=== PATIENT | female | born 1950 | race Caucasian/White ===

== ENCOUNTER 2021-09-12 11:26 | Observation (INO) ==
[2021-09-12] MEDS ORDERED: ASPIRIN 325 MG TABLET PO STA (11:58)
[2021-09-12] MEDS ORDERED: MORPHINE 2 MG/1 ML SYRINGE IV STA (11:58)
[2021-09-12 12:00] LABS: Basophils # 0.1 10*3/uL (0.0-0.2); Eosinophils # 0.3 10*3/uL (0.0-0.87); Eosinophils % 3.1 % (0.00-10.9); Hemoglobin 14.3 GM/DL (12.0-16.0); Immature Granulocytes % 0.2 %; Immature Granulocytes Absolute 0.02 #; Lymphocytes # 1.3 10*3/uL (1.4-4.0); Lymphocytes % 13.8 % (21.3-54.2); Mean Corpuscular HGB Conc 32.5 GM/DL (32-36); Mean Corpuscular Volume 84.5 FL (87-102); Mean Platelet Volume 9.8 FL (9.6-12.0); Monocytes % 5.9 % (1.7-12.7); Platelet Count 285 T/CUMM (130-400); Red Blood Count 5.21 MC/CUMM (3.8-5.5); Red Cell Distribution Width 16.6 % (9.3-17.3); White Blood Count 9.7 T/CUMM (4-12)
[2021-09-12 12:18] LABS: Albumin 3.6 G/DL (3.4-5.0); Bilirubin,Total 0.6 MG/DL (0.20-1.00); Calcium 9.1 MG/DL (8.5-10.1); Osmolality,Calculated 281.5 MOS/KG (273-304); Potassium 3.9 MMOL/L (3.5-5.1); Total Protein 6.6 G/DL (6.4-8.2)
[2021-09-12 12:23] LABS: Anisocytosis Slight; Hypochromasia Slight
[2021-09-12] MEDS ORDERED: AZITHROMYCIN INJ 500 MG in SODIUM CHLORIDE 0.9% 250 ML IV STA (14:26)
[2021-09-12] MEDS ORDERED: ALUM/MAG/SIMETH/LIDO VISC 1:1 30 ML BOTTLE PO STA (14:44)
[2021-09-12] MEDS ORDERED: MAGNESIUM SULF RIDER 2 GM/50 ML PREMIX IV ONE (14:45)
[2021-09-12] MEDS ORDERED: ACETAMINOPHEN 325 MG TABLET PO PRN (14:51)
[2021-09-12] MEDS ORDERED: ONDANSETRON 4 MG/2 ML VIAL IV PRN (14:51)
[2021-09-12] MEDS ORDERED: DEXTROSE 50% 25 GM/50 ML VIAL IV PRN (14:51)
[2021-09-12] MEDS ORDERED: MORPHINE 2 MG/1 ML SYRINGE IV PRN (14:51)
[2021-09-12] MEDS ORDERED: GLUCAGON 1 MG VIAL IM PRN (14:51)
[2021-09-12] MEDS ORDERED: hydrALAZINE 20 MG/1 ML VIAL IV PRN (14:51)
[2021-09-12] MEDS ORDERED: PANTOPRAZOLE 40 MG VIAL IV ONE (14:54)
[2021-09-12] MEDS ORDERED: ATORVASTATIN 20 MG TABLET PO SCH (21:00)
[2021-09-12] MEDS ORDERED: ENOXAPARIN 40 MG/0.4 ML SYRINGE SUBCUT SCH (21:00)
[2021-09-12] MEDS ORDERED: GABAPENTIN 400 MG CAPSULE PO SCH (21:00)
[2021-09-12] MEDS ORDERED: TEMAZEPAM 15 MG CAPSULE PO SCH (21:00)
[2021-09-12] MEDS: ASCORBIC ACID 500 MG TABLET PO SCH (21:06)
[2021-09-12] MEDS: PANTOPRAZOLE 40 MG TABLET PO SCH (21:07)
[2021-09-12] MEDS: buPROPion SR 100 MG TABLET PO SCH (21:07)
[2021-09-12] MEDS: CALCIUM (CARBONATE)/VITAMIN D 600 MG-400 UNIT TABLET PO SCH (21:07)
[2021-09-13 05:14] LABS: Basophils # 0.1 10*3/uL (0.0-0.2); Basophils % 1.2 % (0.0-0.8); Eosinophils # 0.9 10*3/uL (0.0-0.87); Eosinophils % 9.7 % (0.00-10.9); Hematocrit 41.3 VOL% (35.7-47.0); Hemoglobin 13.4 GM/DL (12.0-16.0); Immature Granulocytes % 0.3 %; Immature Granulocytes Absolute 0.03 #; Lymphocytes # 2.7 10*3/uL (1.4-4.0); Lymphocytes % 29.5 % (21.3-54.2); Mean Corpuscular HGB Conc 32.4 GM/DL (32-36); Mean Corpuscular Volume 87.5 FL (87-102); Mean Platelet Volume 9.9 FL (9.6-12.0); Monocytes % 10.1 % (1.7-12.7); Neutrophils % 49.2 % (38.7-73.9); Platelet Count 235 T/CUMM (130-400); Red Blood Count 4.72 MC/CUMM (3.8-5.5); Red Cell Distribution Width 17.1 % (9.3-17.3); White Blood Count 9.1 T/CUMM (4-12)
[2021-09-13 05:38] LABS: Calcium 8.8 MG/DL (8.5-10.1); Risk Ratio 2.1
[2021-09-13 05:52] LABS: Osmolality,Calculated 284.1 MOS/KG (273-304); Potassium 3.7 MMOL/L (3.5-5.1)
[2021-09-13] MEDS: ASCORBIC ACID 500 MG TABLET PO SCH (08:26)
[2021-09-13] MEDS: PANTOPRAZOLE 40 MG TABLET PO SCH (08:26)
[2021-09-13] MEDS: buPROPion SR 100 MG TABLET PO SCH (08:29)
[2021-09-13] MEDS: ALUM/MAG/SIMETH/LIDO VISC 1:1 30 ML BOTTLE PO PRN ×2 (08:31→15:30)
[2021-09-13] MEDS: CALCIUM (CARBONATE)/VITAMIN D 600 MG-400 UNIT TABLET PO SCH (08:34)
[2021-09-13] MEDS ORDERED: GABAPENTIN 400 MG CAPSULE PO SCH (09:00)
[2021-09-13] MEDS ORDERED: PANTOPRAZOLE 40 MG TABLET PO SCH (09:00)
[2021-09-13] MEDS ORDERED: VENLAFAXINE XR 75 MG CAPSULE PO SCH (09:00)
[2021-09-13] MEDS ORDERED: VERAPAMIL SR 120 MG TABLET PO SCH (09:00)
[2021-09-13] MEDS ORDERED: ASPIRIN EC 81 MG TABLET PO SCH (09:00)
[2021-09-13] MEDS ORDERED: MULTIVITAMIN (CENTRUM) TABLET PO SCH (09:00)
[2021-09-13] MEDS ORDERED: ALUM/MAG/SIMETH/LIDO VISC 1:1 30 ML BOTTLE PO ONE (12:05)
[2021-09-13 15:50] VITALS: BP 144/87
== END 2021-09-13 16:05 | disposition home or self-care (01) ==
LOC: EDBD → EDUNIT# → N.EDINP 11:26 → N.ED 11:26 → N.TELEN 20:46
PROVIDERS: ADMIT Internal Medicine; ATTEND Internal Medicine

== ENCOUNTER 2022-06-06 13:26 | Inpatient (IN) ==
[2022-06-06] MEDS ORDERED: methylPREDNISolone SOD SUC 125 MG/2 ML VIAL IV STA (13:55)
[2022-06-06] MEDS ORDERED: ALBUTEROL NEB SOLN 5 MG/ML 20 ML/BOTTLE CONT NEB STA ×2 (13:55→15:40)
[2022-06-06 14:38] LABS: Basophils # 0.1 10*3/uL (0.0-0.2); Basophils % 0.5 % (0.0-0.8); Eosinophils # 1.8 10*3/uL (0.0-0.87); Eosinophils % 13.6 % (0.00-10.9); Hemoglobin 12.8 GM/DL (12.0-16.0); Immature Granulocytes % 0.8 %; Immature Granulocytes Absolute 0.11 #; Lymphocytes # 1.6 10*3/uL (1.4-4.0); Lymphocytes % 11.5 % (21.3-54.2); Mean Corpuscular Volume 83.2 FL (87-102); Mean Platelet Volume 8.8 FL (9.6-12.0); Monocytes # 1.1 10*3/uL (0.11-0.8); Monocytes % 7.8 % (1.7-12.7); Neutrophils % 65.8 % (38.7-73.9); Platelet Count 290 T/CUMM (130-400); Red Blood Count 4.81 MC/CUMM (3.8-5.5); Red Cell Distribution Width 15.5 % (9.3-17.3); White Blood Count 13.5 T/CUMM (4-12)
[2022-06-06 14:59] LABS: Albumin 2.9 G/DL (3.4-5.0); Bilirubin,Total 0.4 MG/DL (0.20-1.00); Osmolality,Calculated 272.1 MOS/KG (273-304); Potassium 4.3 MMOL/L (3.5-5.1); Total Protein 6.4 G/DL (6.4-8.2)
[2022-06-06 15:28] LABS: Eosinophils 13 % (0-10); Hypochromia Slight; Lymphocytes 14 % (20-55); Total Cells Counted 100
[2022-06-06 15:29] LABS: Anisocytosis Slight; Platelet Estimate Adequate; Polychromasia Slight
[2022-06-06 16:04] LABS: Barbiturates Screen,Urine Negative (Negative); Benzodiazepines Screen,Urine Negative (Negative); Cannabinoid Screen,Urine Negative (Negative); Opiate Screen,Urine Positive (Negative); Phencyclidine Screen,Urine Negative (Negative)
[2022-06-06 16:07] LABS: Hyaline Casts,Urine 11 /LPF (0-3); Mucus,Urine Occasional /LPF (Occasional); RBC,Urine 1 /HPF (0-4); Squamous Epithelial Cell,Urine Occasional /HPF (0-10); Urine Appearance Clear (Clear); Urine Color Yellow (Yellow)
[2022-06-06 16:08] LABS: Bilirubin,Urine Negative (Negative); Blood, Urine Negative (Negative); Glucose,Urine (UA) Negative (Negative); Ketones,Urine Negative (Negative); Nitrite,Urine Negative (Negative); Protein,Urine Negative (Negative); Urine Urobilinogen 0.2 eU/dL (<2.0)
[2022-06-06] MEDS ORDERED: LEVOFLOXACIN INJ 500 MG/100 ML PREMIX IV ONE (17:52)
[2022-06-06] MEDS ORDERED: SODIUM CHLORIDE 0.9% 2,000 ML IV STA (17:59)
[2022-06-06] MEDS ORDERED: hydrALAZINE 20 MG/1 ML VIAL IV PRN (18:01)
[2022-06-06] MEDS ORDERED: GLUCAGON 1 MG VIAL IM PRN (18:01)
[2022-06-06] MEDS ORDERED: diphenhydrAMINE CAP 25 MG CAPSULE PO PRN (18:01)
[2022-06-06] MEDS ORDERED: NICOTINE 21 MG/24 HR PATCH TRANSDERM PRN (18:01)
[2022-06-06] MEDS ORDERED: ONDANSETRON 4 MG/2 ML VIAL IV PRN (18:01)
[2022-06-06] MEDS ORDERED: DEXTROSE 10% 250 ML BAG IV PRN (18:32)
[2022-06-06] MEDS: ALBUTEROL/IPRATROPIUM 3 ML NEB RESP TX SCH (20:12)
[2022-06-06] MEDS: SODIUM CHLORIDE 0.9% 1,000 ML IV SCH (21:07)
[2022-06-06] MEDS: ZALEPLON 5 MG CAPSULE PO PRN (21:07)
[2022-06-06] MEDS: HEPARIN 5,000 UNIT/1 ML VIAL SUBCUT SCH (21:08)
[2022-06-06] MEDS: ACETAMINOPHEN 325 MG TABLET PO PRN (21:08)
[2022-06-06] MEDS ORDERED: MELATONIN 3 MG TABLET PO PRN (22:51)
[2022-06-06] MEDS ORDERED: DOCUSATE SODIUM 100 MG CAPSULE PO PRN (22:51)
[2022-06-06] MEDS ORDERED: OXYMETAZOLINE 0.05% NASAL SPRAY 15 ML BOTTLE BOTH NARES PRN (22:51)
[2022-06-06] MEDS: PIPERACILLIN/TAZOBACTAM 3,375 MG in SODIUM CHLORIDE 0.9% 100 ML IV SCH (23:42)
[2022-06-07 00:46] LABS: Basophils % 0.2 % (0.0-0.8); Eosinophils % 0.1 % (0.00-10.9); Hematocrit 39.8 VOL% (35.7-47.0); Hemoglobin 12.8 GM/DL (12.0-16.0); Immature Granulocytes Absolute 0.11 #; Lymphocytes # 0.9 10*3/uL (1.4-4.0); Lymphocytes % 7.7 % (21.3-54.2); Mean Corpuscular HGB Conc 32.2 GM/DL (32-36); Mean Corpuscular Volume 82.1 FL (87-102); Mean Platelet Volume 8.9 FL (9.6-12.0); Monocytes # 0.2 10*3/uL (0.11-0.8); Monocytes % 1.7 % (1.7-12.7); Neutrophils % 89.3 % (38.7-73.9); Platelet Count 318 T/CUMM (130-400); Red Blood Count 4.85 MC/CUMM (3.8-5.5); Red Cell Distribution Width 15.5 % (9.3-17.3); White Blood Count 11.2 T/CUMM (4-12)
[2022-06-07] MEDS: ALBUTEROL/IPRATROPIUM 3 ML NEB RESP TX SCH ×4 (00:47→19:25)
[2022-06-07 01:14] LABS: Osmolality,Calculated 284.3 MOS/KG (273-304); Potassium 4.1 MMOL/L (3.5-5.1)
[2022-06-07] MEDS: ACETAMINOPHEN 325 MG TABLET PO PRN ×2 (03:24→14:24)
[2022-06-07] MEDS ORDERED: VANCOMYCIN INJ 1,250 MG in SODIUM CHLORIDE 0.9% 250 ML IV SCH (04:00)
[2022-06-07] MEDS: PIPERACILLIN/TAZOBACTAM 3,375 MG in SODIUM CHLORIDE 0.9% 100 ML IV SCH ×2 (09:53→10:38)
[2022-06-07] MEDS: PANTOPRAZOLE 40 MG TABLET PO SCH (09:54)
[2022-06-07] MEDS: CALCIUM (CARBONATE)/VITAMIN D 600 MG-400 UNIT TABLET PO SCH ×2 (09:54→20:22)
[2022-06-07] MEDS: guaiFENesin/DM ER 600-30 MG TABLET PO PRN (09:54)
[2022-06-07] MEDS: VENLAFAXINE XR 75 MG CAPSULE PO SCH (09:55)
[2022-06-07] MEDS: ASCORBIC ACID 500 MG TABLET PO SCH ×2 (09:55→20:20)
[2022-06-07] MEDS: HEPARIN 5,000 UNIT/1 ML VIAL SUBCUT SCH ×2 (09:55→20:20)
[2022-06-07] MEDS: ASPIRIN EC 81 MG TABLET PO SCH (09:55)
[2022-06-07] MEDS: AZITHROMYCIN INJ 500 MG in SODIUM CHLORIDE 0.9% 250 ML IV SCH (11:34)
[2022-06-07] MEDS: SODIUM CHLORIDE 0.9% 1,000 ML IV SCH (11:35)
[2022-06-07] MEDS ORDERED: cefTRIAXone 1,000 MG in SODIUM CHLORIDE 0.9% 100 ML IV SCH (15:00)
[2022-06-07] MEDS ORDERED: cefTRIAXone 1,000 MG VIAL IM SCH (16:30)
[2022-06-07] MEDS ORDERED: cefTRIAXone 2,000 MG in SODIUM CHLORIDE 0.9% 100 ML IV SCH (17:00)
[2022-06-07] MEDS: ZALEPLON 5 MG CAPSULE PO PRN (20:21)
[2022-06-07] MEDS: buPROPion SR 100 MG TABLET PO SCH (20:21)
[2022-06-07] MEDS ORDERED: ATORVASTATIN 20 MG TABLET PO SCH (21:00)
[2022-06-07] MEDS ORDERED: TEMAZEPAM 15 MG CAPSULE PO SCH (21:00)
[2022-06-08] MEDS: ALBUTEROL/IPRATROPIUM 3 ML NEB RESP TX SCH ×3 (00:18→13:44)
[2022-06-08] MEDS: SODIUM CHLORIDE 0.9% 1,000 ML IV SCH (04:01)
[2022-06-08 06:11] LABS: Basophils # 0.1 10*3/uL (0.0-0.2); Basophils % 0.5 % (0.0-0.8); Eosinophils # 0.6 10*3/uL (0.0-0.87); Eosinophils % 3.7 % (0.00-10.9); Hematocrit 35.3 VOL% (35.7-47.0); Hemoglobin 11.2 GM/DL (12.0-16.0); Immature Granulocytes % 0.6 %; Lymphocytes % 18.4 % (21.3-54.2); Mean Corpuscular HGB Conc 31.7 GM/DL (32-36); Mean Platelet Volume 8.8 FL (9.6-12.0); Monocytes # 1.1 10*3/uL (0.11-0.8); Neutrophils % 69.8 % (38.7-73.9); Platelet Count 257 T/CUMM (130-400); Red Cell Distribution Width 15.5 % (9.3-17.3); White Blood Count 16.2 T/CUMM (4-12)
[2022-06-08 06:26] LABS: Calcium 8.8 MG/DL (8.5-10.1); Osmolality,Calculated 283.1 MOS/KG (273-304); Potassium 3.3 MMOL/L (3.5-5.1)
[2022-06-08] MEDS: VENLAFAXINE XR 75 MG CAPSULE PO SCH (09:58)
[2022-06-08] MEDS: ASPIRIN EC 81 MG TABLET PO SCH (09:58)
[2022-06-08] MEDS: guaiFENesin/DM ER 600-30 MG TABLET PO PRN (09:58)
[2022-06-08] MEDS: CALCIUM (CARBONATE)/VITAMIN D 600 MG-400 UNIT TABLET PO SCH (09:59)
[2022-06-08] MEDS: ASCORBIC ACID 500 MG TABLET PO SCH (09:59)
[2022-06-08] MEDS: PANTOPRAZOLE 40 MG TABLET PO SCH (09:59)
[2022-06-08] MEDS: HEPARIN 5,000 UNIT/1 ML VIAL SUBCUT SCH (10:00)
[2022-06-08] MEDS: buPROPion SR 100 MG TABLET PO SCH (10:01)
[2022-06-08] MEDS ORDERED: predniSONE 20 MG TABLET PO ONE (11:30)
[2022-06-08] MEDS: AZITHROMYCIN INJ 500 MG in SODIUM CHLORIDE 0.9% 250 ML IV SCH ×2 (11:49→12:11)
[2022-06-08 11:53] VITALS: BP 137/71
== END 2022-06-08 14:55 | disposition home or self-care (01) | DRG 193 ==
LOC: EDBD → EDUNIT# → N.ED 13:26 → N.EDINP 18:01 → N.5E 19:13
PROVIDERS: ADMIT Emergency Medicine; ATTEND Emergency Medicine